=== PATIENT | male | born 1990 | race Caucasian/White ===

== ENCOUNTER 2022-07-04 20:24 | Emergency (ER) | payer MEDICAID, SELFPAY ==
--- NOTE | ~2022-07-04 | XR_ITS ---
EXAMINATION: XR ELBOW, LEFT CLINICAL INFORMATION: Pain. COMPARISON: None available. TECHNIQUE: AP, lateral, and oblique views of the left elbow. FINDINGS: Well-corticated osseous/calcific bodies adjacent to the olecranon process at the insertion site of the triceps. No acute fractures or malalignment. No joint effusion. XR/XR elbow LT 2V IMPRESSION: 1. No acute fractures or malalignment. 2. Well-corticated osseous/calcific bodies adjacent to the olecranon process at the insertion site of the triceps suggesting calcific tendinosis/degenerative changes. Correlate with point tenderness.
[2022-07-04 20:29] VITALS: BP 119/86; PULSE 106; RESP 18; TEMP 36.6; O2SAT 94; BMI 36.5
--- NOTE | 2022-07-04 20:29 | ED_ITS ---
HPI - General Adult General Chief complaint: Extremity Injury, Upper Stated complaint: Elbow pain/ dislocated? Time Seen by Provider: 07/04/22 22:04 Source: patient Mode of arrival: ambulatory Limitations: no limitations History of Present Illness HPI narrative: Patient is a 32 year old assigned male at with no reported medical history presenting to the emergency department today with elbow pain. Patient states that he hit his left elbow a few days ago and again today. Patient denies hitting his head with the incident or any loss of consciousness. Patient denies any dizziness, lightheadedness, abdominal pain, nausea, vomiting, fever, chills, blurry vision, double vision, loss of vision, chest pain, difficulty breathing, shortness of breath, back pain, night sweats, pain with urination, increased urinary frequency, increased urinary urgency, blood in his urine or stool, syncope or a near syncopal episode, bowel incontinence, bladder incontinence, bowel retention, bladder retention, or any other complaints at this time. Onset (ago): day(s) Location: left and upper extremity Radiation: non-radiation Severity: mild Severity scale (1-10): 2 Quality: aching and dull Relieving factors: none Exacerbating factors: none Associated symptoms: denies other symptoms Treatments prior to arrival: none Related Data Allergies Allergy/AdvReac Type Severity Reaction Status Date / Time No Known Allergies Allergy Verified 07/04/22 20:28 Review of Systems Constitutional: Constitutional: Reports no additional constitutional complaints, Denies chills, Denies fever(s) and Denies night sweats Eyes: Eyes: Reports no additional eye complaints, Denies blurry vision, Denies change in vision, Denies diplopia, Denies eye discharge, Denies loss of vision and Denies eye pain ENT: Denies dizziness Cardiovascular: Cardiovascular: Reports no additional cardiovascular complai nts, Denies chest pain, Denies lightheadedness, Denies Loss of Consciousness and Denies dyspnea Respiratory: Respiratory: Reports no additional respiratory complaints and Denies dyspnea Gastrointestinal: Gastrointestinal: Reports no additional gastrointestinal complaints, Denies abdominal pain, Denies melena, Denies hematochezia, Denies change in bowel habits and Denies change in stool character Genitourinary: Genitourinary: Reports no additional male genitourinary complaints, Denies hematuria, Denies oliguria, Denies difficulty urinating, Denies dysuria, Denies urinary frequency, Denies urinary hesitancy, Denies urinary incontinence and Denies urinary urgency Musculoskeletal: Musculoskeletal: Reports no additional musculoskeletal complaints, Denies numbness and Denies tingling Comments: left elbow pain Neurologic: Denies dizziness, Denies loss of vision, Denies numbness and Denies tingling Psychiatric: Psychiatric: Reports no additional psychiatric complaints Endocrine: Endocrine: Reports no additional endocrine complaints Hematologic/Lymphatic: Hematologic/Lymphatic: Reports no additional hematologic/lymphatic complaints Allergic/Immunologic: Allergic/Immunologic: Reports no additional allergic/immunologic complaints PMFSH Past Medical History Attestation statement: The following information was validated with the patient. Source: old records reviewed and nursing notes reviewed Social History Social History Advance Directives: No Advance Directives Information Provided: No Physical Exam ED Vital Signs: BMI result Body Mass Index 36.5 Const General: cooperative, no acute distress, alert and awake Nutritional Appearance: well nourished Orientation/consciousness: patient oriented x3 Limitations: no limitations HENMT Head: Yes normal to inspection and Yes atraumatic Ears: hearing grossly normal bilaterally and external ears normal General nose exam: Normal external nose present, no nasal discharge noted and no epistaxis Face and sinus: Yes normal facial exam, No abrasion and No laceration Mouth: Normal oral and palatal mucosa present, no drooling and no muffled voice Eyes General: appearance normal, both eyes and all related structures Periorbital: periorbital findings normal Eyelids: Yes eyelids normal Conjunctivae: conjunctivae normal Pupils: Equal, round and reactive pupils present EOM: EOMs intact bilaterally Neck Neck: Yes normal visual inspection, Yes full ROM and Yes no lymphadenopathy Chest Chest palpation & inspection: normal inspection of the chest Resp Effort & Inspection: normal respiratory effort and able to speak in complete sen tences Auscultation: clear to auscultation bilaterally Cardio Rate: regular rate Rhythm: regular rhythm GI Inspection: Yes normal to inspection Neuro General: patient oriented x3 and moves all extremities Cranial nerves: Yes Equal, round and reactive pupils present Cognition (Neuro): normal cognition Motor exam (neuro): 5/5 motor strength present throughout Sensory Exam: Normal double simultaneous stimulation for sensation Coordination: [id number] test normal Extrem General: Yes normal to inspection, Yes full ROM and Yes capillary refill normal Psych Appearance: grossly normal Mental Status: mental status grossly normal Affect: normal affect Attitude: cooperative Thought process: Normal thought process present Thought content: Normal thought content present Insight: Good insight present (Psych) Course Course Course Narrative: RME performed by Denisse Landaverde PA-C. Patient is a 32 year old assigned male at presenting to the emergency department with left elbow pain. Imaging ordered. Patient placed back in the waiting room pending room availability and results. Medical Decision Making Medical Decision Making MDM Narrative: Patient is a 32 year old assigned male at with no reported medical history presenting to the emergency department today with left elbow pain. Patient's physical exam was unremarkable. Patient's left elbow x-ray showed no acute process. Patient eloped from the department prior to my explaining of my physical exam findings or his imaging results. Differential Diagnosis Differential Diagnoses: The differential diagnosis associated with the presentation includes left elbow injury Independent Interpretation I performed an independent interpretation of an: Plain X-Ray Interpretation: My interpretation is in agreement with the radiologist's impression of this imaging study. EXAMINATION: XR ELBOW, LEFT CLINICAL INFORMATION: Pain.? COMPARISON: None available.? TECHNIQUE: AP, lateral, and oblique views of the left elbow. FINDINGS: Well-corticated osseous/calcific bodies adjacent to the olecranon process at the insertion site of the triceps. No acute fractures or malalignment. No joint effusion.? XR/XR elbow LT 2V IMPRESSION: 1.? No acute fractures or malalignment. 2.? Well-corticated osseous/calcific bodies adjacent to the olecranon process at the insertion site of the triceps suggesting calcific tendinosis/degenerative changes. Correlate with point tenderness. Dictated By: Jessi Porter Signed By: Electronically signed by Jessi?Charlotte 07/04/22 [id number] Discharge Plan Discharge Clinical Impression: Elbow injury Patient Disposition: Elopement Discharge Date/Time: 07/04/22 22:10
--- NOTE | 2022-07-04 21:34 | PC.NURSE ---
pt loudly exclaiming in room, ice applied to affected extremity, pt sts pain is 10/10, author asked pt what he hit his elbow on, pt could not recall. pt groaning, yelling profanties, XR taken, water pitcher and call [place] at bedside. awaiting provider WCTM.
--- NOTE | 2022-07-04 22:09 | PC.NURSE ---
returned to pt room- pt eloped, provider aware
== END 2022-07-04 22:10 | disposition left against medical advice (07) ==
PROVIDERS: Emergency Provider Emergency Medicine
DX: S59.902A Unspecified injury of left elbow, initial encounter (principal); W22.8XXA Striking against or struck by other objects, initial encounter; Y93.9 Activity, unspecified; Y92.9 Unspecified place or not applicable; Y99.9 Unspecified external cause status
CPT/HCPCS: 73070; 99281; 99283

== ENCOUNTER 2022-10-12 13:17 | Emergency (ER) | payer MEDICAID, SELFPAY ==
--- NOTE | 2022-10-12 13:20 | ECG_ITS ---
Test Reason : chest pain Blood Pressure : / mmHG Vent. Rate : 089 BPM Atrial Rate : 089 BPM P-R Int : 178 ms QRS Dur : 116 ms QT Int : 384 ms P-R-T Axes : 035 039 023 degrees QTc Int : 467 ms Normal sinus rhythm Incomplete right bundle branch block Nonspecific T wave abnormality Prolonged QT Abnormal ECG When compared with ECG of 14-FEB-2008 15:41, Significant changes have occurred Referred By: Generic ED Physician Electronically Signed By:Karl Singh
--- NOTE | 2022-10-12 14:31 | ED.GENADULT ---
HPI - General Adult General Stated complaint: chest pain Related Data Allergies Allergy/AdvReac Type Severity Reaction Status Date / Time No Known Allergies Allergy Verified 07/04/22 20:28 [facility] [place] Social History Social History Advance Directives: No Advance Directives Information Provided: No Course Course Course Narrative: [id number] presenting to the ER with complaints of chest pain x 2 days. Pt had EKG performed and left prior to being fully triage. Discharge Plan Discharge Clinical Impression: Chest pain Patient Disposition: Elopement Interventions: LWBS Worksheet Last Done: 10/12/22 15:03 Discharge Date/Time: 10/12/22 15:03
== END 2022-10-12 15:03 | disposition left against medical advice (07) ==
PROVIDERS: Emergency Provider Emergency Medicine; PCP Internal Medicine
DX: R07.9 Chest pain, unspecified (principal)
CPT/HCPCS: 93005; 99282; 99283

== ENCOUNTER → 2022-10-12 13:20 | Outpatient (BNV) | payer MEDICAID, SELFPAY | PROVIDERS: Emergency Provider Emergency Medicine; PCP Internal Medicine; Visit Provider Internal Medicine Cardiovascular Disease | DX: R94.31 Abnormal electrocardiogram [ECG] [EKG] (principal) | CPT/HCPCS: 93010 ==

== ENCOUNTER 2024-04-19 13:06 | Outpatient (REF) | payer OTHER, MEDICAID, SELFPAY ==
--- NOTE | ~2024-04-19 | XR_ITS ---
EXAMINATION: XR CHEST CLINICAL INFORMATION: COUGH. R/O PNEUMONIA COMPARISON: Cough TECHNIQUE: 2 views of the chest were obtained. FINDINGS: No significant abnormality is noted involving the heart, lungs, mediastinum, bony thorax or soft tissues. XR/XR chest 2V IMPRESSION: Unremarkable chest examination. Electronically signed by: Curtis Cruz MD 04/19/2024 03:[address] [facility] [place]
== END 2024-04-19 13:07 | disposition home or self-care (01) ==
LOC: HO.HMGCX 13:06
PROVIDERS: PCP Internal Medicine; Visit Provider Internal Medicine
DX: R05.9 Cough, unspecified (principal)
CPT/HCPCS: 71046

== ENCOUNTER → 2024-04-19 13:13 | Outpatient (BNV) | payer OTHER, MEDICAID, SELFPAY | PROVIDERS: PCP Internal Medicine; Visit Provider Radiology Diagnostic Radiology | DX: R05.9 Cough, unspecified (principal) | CPT/HCPCS: 71046 ==

== ENCOUNTER 2024-09-13 13:45 | Emergency (ER) | payer OTHER, SELFPAY ==
--- NOTE | ~2024-09-13 | CT_ITS ---
CLINICAL HISTORY: fall off hui in [place] [address] cervical spine without contrast Comparison: None Findings: Normal limited view of the intracranial contents. Soft tissues of the neck are normal. Lung apices are clear. Normal vertebral body alignment. No fractures or dislocations. No significant degenerative change. No epidural hematoma. Impression: Unremarkable CT of the cervical spine, no signs of acute trauma. This document has been electronically signed by: Juan Jose Quiroz MD on 09/13/2024 17:20:41
--- NOTE | ~2024-09-13 | CT_ITS ---
EXAMINATION: CT HEAD WITHOUT CONTRAST CLINICAL INFORMATION: Bilateral mixed, fell from a hui 4 days ago COMPARISON: December 02, 2019 TECHNIQUE: Contiguous axial imaging was performed from the skull base to vertex without intravenous administration of contrast. This CT examination was performed using dose optimization techniques as appropriate, variously including the following: *Automated exposure control *Adjustment of mA and/or kV according to patient size (this includes techniques or standardized protocols for targeted exams where dose is matched to indication/reason for exam; i.e. extremities or head) *Use of iterative reconstruction technique DLP: 840 mGY*cm FINDINGS: There is no acute ischemic change. There is no intracranial hemorrhage. There is no mass-effect or midline shift. Basal cisterns and ventricles are within normal limits for age/cerebral volume. Orbits are symmetrical and unremarkable. Paranasal sinuses and mastoid air cells are pneumatized. There are no bony abnormalities. CT/CT head/brain wo IV con IMPRESSION: No acute intracranial abnormality. Electronically signed by: Abdifatah Kapadia MD 09/13/2024 04:41 PM EDT
--- NOTE | ~2024-09-13 | XR_ITS ---
EXAMINATION: XR ANKLE, RIGHT CLINICAL INFORMATION: swelling and pain s/p fall COMPARISON: None available. TECHNIQUE: AP, lateral, and mortise views of the right ankle. FINDINGS: Talar dome is intact. Ankle mortise is congruent. There is no widening of the syndesmosis. Soft tissue swelling is more pronounced laterally. XR/XR ankle RT min 3V IMPRESSION: Soft tissue swelling, otherwise unremarkable ankle. Electronically signed by: Abdifatah Kapadia MD 09/13/2024 02:39 PM EDT
--- NOTE | ~2024-09-13 | CT_ITS ---
EXAMINATION: CT CHEST WITH CONTRAST CLINICAL INFORMATION: Fall from] [place] 4 days ago. DLP: 475 mGY*cm COMPARISON: December 02, 2019 TECHNIQUE: Multidetector volumetric CT imaging of the chest was obtained after the administration of 85 mL of Omnipaque 350 intravenous contrast without immediate adverse reactions. Axial MIP volume rendering provided. Sagittal and coronal reformatted images were obtained. This CT examination was performed using dose optimization techniques as appropriate, variously including the following: *Automated exposure control *Adjustment of mA and/or kV according to patient size (this includes techniques or standardized protocols for targeted exams where dose is matched to indication/reason for exam; i.e. extremities or head) *Use of iterative reconstruction technique FINDINGS: LUNGS: Atelectasis and airspace opacity is present in the left lower lobe. MEDIASTINUM: Trace pericardial fluid is present. Otherwise unremarkable. PLEURA: Small to medium layering pleural effusion is present on the left AXILLA/chest wall: No lymphadenopathy. Prominent soft tissue is present in the subareolar region. UPPER ABDOMEN: There is fat stranding and free fluid. OSSEOUS STRUCTURES: No fractures are identified. CT/CT chest w IV con IMPRESSION: Small to medium size layering pleural effusions present on the left. There is left lower lobe atelectasis and possible pneumonia. Gynecomastia, unchanged. There is fat stranding in free fluid in the upper abdomen. Fleischner guidelines were followed. Electronically signed by: Abdifatah Kapadia MD 09/13/2024 04:52 PM EDT
--- NOTE | ~2024-09-13 | CT_ITS ---
EXAMINATION: CT ABDOMEN AND PELVIS WITH CONTRAST CLINICAL INFORMATION: Fell from a hui in [place] 4 days ago COMPARISON: December 02, 2019 DLP: 1190 mGY*cm TECHNIQUE: Multidetector volumetric images were obtained from the superior aspect of the liver through the pubic symphysis following administration 85 mL of Omnipaque 350 intravenous contrast. Sagittal and coronal reformatted images were obtained on the technologist's workstation. Oral contrast: No This CT examination was performed using dose optimization techniques as appropriate, variously including the following: *Automated exposure control *Adjustment of mA and/or kV according to patient size (this includes techniques or standardized protocols for targeted exams where dose is matched to indication/reason for exam; i.e. extremities or head) *Use of iterative reconstruction technique FINDINGS: LUNG BASES: There is a layering pleural effusion and compressive atelectasis. LIVER, GALLBLADDER, AND BILIARY TREE: Geographic fatty changes are present in the liver sparing the caudate lobe and portions of the left hepatic lobe Gall bladder and bile duct are unremarkable. PANCREAS: There is fat stranding and fluid around the tail the pancreas which appears slightly heterogeneous SPLEEN: 15 cm long axis, splenomegaly. ADRENAL GLANDS: Unremarkable. KIDNEYS AND URETERS: The kidneys are normal in size, shape, and attenuation. No hydronephrosis, hydroureter, or calculi seen. No perinephric stranding. BLADDER: Unremarkable. GASTROINTESTINAL TRACT: A few pseudodiverticula are present in the distal descending and proximal sigmoid colon. The appendix is within normal limits. The colon is mostly decompressed. ABDOMINAL WALL: There is mild fat stranding bilaterally along the flanks and periumbilical region. LYMPH NODES: Normal. VASCULAR: Unremarkable. PELVIC VISCERA: Unremarkable. OSSEOUS STRUCTURES: Vertebral hemangioma is present in the central and left L2 vertebral body . Chronic accessory ossification lateral to the acetabular roof is again noted. No fractures are identified. CT/CT abdomen pelvis w IV con IMPRESSION: Grade 1, possible grade 2 contusion of the pancreas. Small to medium left pleural effusion with compressive atelectasis in the left lower lobe. Geographic fatty changes are evident in the liver. Splenomegaly Fleischner guidelines were followed. Electronically signed by: Abdifatah Kapadia MD 09/13/2024 05:15 PM EDT
--- NOTE | ~2024-09-13 | XR_ITS ---
EXAMINATION: XR FOOT, RIGHT CLINICAL INFORMATION: pain and swelling s/p fall COMPARISON: None available. TECHNIQUE: AP, lateral, and oblique views of the right foot. FINDINGS: The bones and soft tissues are normal. No fracture. Alignment is anatomic. Joint spaces are maintained. XR/XR foot RT min 3V IMPRESSION: Normal right foot. Electronically signed by: Abdifatah Kapadia MD 09/13/2024 02:41 PM EDT
[2024-09-13 13:56] VITALS: BP 169/97; PULSE 98; O2SAT 98
--- NOTE | 2024-09-13 13:57 | ED_ITS ---
HPI - General Adult General Chief complaint: General Medical Stated complaint: L rib, abd, back, foot pain, post fall 4 days ago Time Seen by Provider: 09/13/24 13:57 Source: patient, EMS, RN notes reviewed and old records reviewed Mode of arrival: EMS Limitations: altered mental status History of Present Illness ED Provider: Yuliya [facility] narrative: Patient is a 34-year-old male with no past medical history presenting to the emergency department via EMS complaining of rib pain, right ankle pain, generalized body pain. States that he was in [place], [place] 4 days ago and jumped off of a 4 ft ledge, landing on his side on [address]. States that he was seen at a hospital in [place] twice after this fall but that he left prior to completing treatment. Unable to state what diagnostic testing was performed at that hospital. Patient providing limited history, difficulty maintaining alert and awake state. Reports that he was told his ankle was fractured, however, does not have a splint or cast to right ankle. Denies headache, vision changes, neck or back pain, chest pain. Denies abdominal pain, flank pain, hematuria. Complains of right sided rib and right ankle pain, feels sore all over. Admits to drinking ?2 shots? of alcohol prior to arrival today. Denies any drug use. States he was prescribed percocet in [place] but ran out. complaint: rib and ankle pain Onset (ago): day(s) Related Data Allergies Allergy/AdvReac Type Severity Reaction Status Date / Time No Known Allergies Allergy Verified 09/13/24 14:11 Review of Systems 2 Review of Systems: As per HPI Yes all other systems are reviewed and are negative Constitutional: Constitutional: Reports as per HPI [facility] Social History Social History Alcohol intake: current Alcohol type: hard liquor Smoked in Last 30 Days: Yes Use of substances other than those prescribed or required for medical reasons: No Advance Directives: No Advance Directives Information Provided: Yes Do you have a plan to hurt others: No Plan Physical Exam ED Vital Signs: Vital Signs - 24 hr 09/13/24 14:01 09/13/24 16:48 Temperature 98.7 F 98.7 F Pulse Rate 98 98 Respiratory Rate 18 18 Blood Pressure 136/75 136/75 Pulse Oximetry 94 94 Oxygen Delivery Method Room Air Room Air BMI result Body Mass Index 40.5 Vital signs have been reviewed and appear to be correct. Blood pressure normal. Heart rate normal. Respiratory rate normal. Temperature normal. Oxygen saturation normal. Const General: healthy appearing, no acute distress and intoxicated appearing (wakes to voice) Orientation/consciousness: oriented to person, oriented to place, oriented to time and patient oriented x3 HENMT Head: Yes normal to inspection, Yes normocephalic, Yes atraumatic, No Pereyra's sign and No periorbital ecchymosis Ears: hearing grossly normal bilaterally, external ears normal, TM's normal bilaterally and EAC's normal General nose exam: Normal external nose present, Normal nasal mucous membranes and turbinates present and Normal septum present Face and sinus: Yes sinuses nontender and Yes face symmetric Mouth: Normal oral and palatal mucosa present, oropharynx normal and moist mucous membranes Throat: Yes uvula midline Eyes General: appearance normal, both eyes and all related structures Pupils: Equal, round and reactive pupils present (3mm bilat) EOM: EOMs intact bilaterally Neck Neck: Yes normal visual inspection, Yes full ROM, Yes trachea midline, Yes supple and No anterior neck swelling Chest Chest palpation & inspection: normal inspection of the chest, no crepitus and tenderness rib right mid-axillary line Resp Effort & Inspection: normal respiratory effort and able to speak in complete sentences Auscultation: clear to auscultation bilaterally Cardio Rate: regular rate Rhythm: regular rhythm Heart sounds: S1 normal heart sound present and S2 normal heart sound present GI Inspection: Yes normal to inspection and No abdominal wall ecchymosis Palpation (GI): Soft to palpation and nontender Auscultation: normoactive bowel sounds General: Yes no CVA tenderness Back/Spine/Pelvis Back: no CVA tenderness Cervical Spine: normal cervical lordosis, cervical ROM normal, No cervical muscular tenderness, No pain with cervical ROM, No Cervical spine tenderness and No step off deformity Thoracic/Lumbar Spine: thoracic and lumbar spine normal to inspection, thoraco- lumbar ROM normal, No pain with thoraco-lumbar ROM, No paraspinal muscle tenderness, No thoracic spinal tenderness and No lumbar spinal tenderness Pelvis: no pain with anterior-posterior compression and no pain with lateral compression Skin General skin exam: elasticity normal and turgor normal Neuro General: oriented to person, oriented to place, oriented to time, patient oriented x3, gait normal, tone normal, moves all extremities, Normal light touch and pain sensation, no focal motor deficits, CN's II-XI intact bilaterally and deep tendon reflexes 2+ bilaterally Cranial nerves: Yes Equal, round and reactive pupils present (3mm bilat) Cognition (Neuro): normal cognition Motor exam (neuro): 5/5 motor strength present throughout, Normal motor muscle tone present throughout and Motor abnormalities not present Extrem General: Yes full ROM, Yes no pedal edema and Yes no calf tenderness Right lower extremity: ankle Details: tenderness (diffuse), swelling Details: diffusely and normal ROM and foot Details: abrasion dorsal Details: multiple and vascular exam Details: dorsalis pedis pulse present, posterior tibial pulse present and normal capillary refill Left lower extremity: ankle Details: tenderness (diffuse), swelling Details: diffusely and normal ROM and foot Details: vascular exam Details: dorsalis pedis pulse present, posterior tibial pulse present and normal capillary refill Psych Mental Status: mental status grossly normal Affect: normal affect Thought process: Normal thought process present Course Reevaluation(s) Reevaluation #1: Patient now awake and alert, abruptly stating that he wishes to leave the department prior to results of imaging. Discussed with patient the risks of leaving against medical advice up to and including . Patient is alert, oriented x3 and has capacity to make his own medical decisions. Advised patient that he can return to the ED or another ED at any time if he should change his mind. At time of leaving, no evidence of fracture to right foot or ankle, no evidence of ICH or skull fracture on CT head. * The patient has decided to leave against medical advice because he does not want to wait in the ED any longer. * They have normal mental status and adequate capacity to make medical decisions. * The patient refuses full ED evaluation and wants to be discharged. * The risks have been explained to the patient, including fracture, internal bleeding, intracranial hemorrhage,, worsening illness, chronic pain, permanent disability and . * The benefits of ED evaluation have also been explained, including the availability and proximity of nurses, physicians, monitoring, diagnostic testing, treatment and pain control. * The patient was able to understand and state the risks and benefits of ED evaluation. This was witnessed by nurse Hurtado and me. * They had the opportunity to ask questions about their medical condition. * The patient was treated to the extent that they would allow and knows that they may return for care at any time. Time: 16:57 Reevaluation #2: Results of CT chest, abdomen/pelvis, and cervical spine now back. No evidence of acute fracture or listhesis of c-spine. CT chest notable for small to medium size layering pleural effusions on the left as well as left lower lobe atelectasis and possible pneumonia. CT abdomen pelvis notable for grade 1, possible grade 2 contusion of the pancreas, splenomegaly. Was able to contact patient via telephone to discuss the results and instructed patient to present to the emergency department at [facility] as if he return to this ED would likely be a trauma transfer. Expect called to mateusz Lockhart RN at [facility] ED. Patient verbalized understanding of results and states he will present to [facility] ED. Images uploaded to [facility] ED. CT cervical spine without contrast Comparison: None Findings: Normal limited view of the intracranial contents. Soft tissues of the neck are normal. Lung apices are clear. Normal vertebral body alignment. No fractures or dislocations. No significant degenerative change. No epidural hematoma. Impression: Unremarkable CT of the cervical spine, no signs of acute trauma. CT/CT chest w IV con IMPRESSION: Small to medium size layering pleural effusions present on the left. There is left lower lobe atelectasis and possible pneumonia. Gynecomastia, unchanged. There is fat stranding in free fluid in the upper abdomen. Fleischner guidelines were followed. CT/CT abdomen pelvis w IV con IMPRESSION: Grade 1, possible grade 2 contusion of the pancreas. Small to medium left pleural effusion with compressive atelectasis in the left lower lobe. Geographic fatty changes are evident in the liver. Splenomegaly Time: 17:26 Medications Administered Discontinued Medications Generic Name Dose Route Start Last Admin Trade Name Freq PRN Reason Stop Dose Admin Iohexol 100 ml 09/13/24 16:06 09/13/24 16:06 Iohexol 350 Mg/Ml 100 Ml Infus..Btl IV 09/13/24 16:07 85 ml ONCE ONE Administration Medical Decision Making Medical Decision Making MDM Narrative: Patient is a 34-year-old male with no past medical history presenting to the emergency department via EMS complaining of rib pain, right ankle pain, generalized body pain. On exam patient is awake, A+Ox3, VS WNL, afebrile, normal neurological exam without focal deficits, physical exam findings as above. Given reported symptoms and physical exam findings, initial differential includes but is not limited to ICH, skull or cervical vertebral fracture subluxation, pneumothorax, intra-abdominal hemorrhage or other traumatic injury, right ankle or foot fracture versus sprain, drug or alcohol intoxication. Labs notable for mild anemia, no leukocytosis, slight hypokalemia and mildly elevated transaminases. Urinalysis is without evidence of infection and no blood. X-ray right foot and ankle without evidence of acute fracture. CT head notable for notable for no evidence of ICH, skull fracture. My interpretation is in agreement with the radiologist's interpretation. See course for remainder of clinical decision making. Differential Diagnosis Differential Diagnoses: The differential diagnosis associated with the presentation includes As per [facility] Admission/Observation Consideration of admission/observation: Escalation of care including admission/observation considered Patient would have been admitted to the hospital had their work up had any findings where hospital admission was appropriate and their clinical presentation warranted hospital admission. Lab Data [facility] Lab Attestation statement: I reviewed the patient's lab results. As per [facility] 09/13/24 14:58 09/13/24 14:58 Labs: Lab Results 09/13/24 09/13/24 Range/Units 14:58 15:05 WBC 6.4 (4.8-10.8) X10*3/uL RBC 3.62 L (4.60-5.80) X10*6/uL Hgb 11.8 L (14.0-18.0) g/dl Hct 33.6 L (42.0-52.0) % MCV 92.8 (80.0-98.0) fL MCH 32.6 (27.0-33.0) pg MCHC 35.1 (31.0-36.0) g/dl RDW 14.1 (11.0-16.0) % Plt Count 169 (160-400) X10*3/uL MPV 8.6 L (9.4-12.4) fL Immature Gran % (Auto) 1.4 H (0.0-0.4) % Neut % (Auto) 67.1 (45-73) % Lymph % (Auto) 16.8 L (20-40) % [place] % (Auto) 11.1 H (2-11) % Eos % (Auto) 3.0 (0-4) % Baso % (Auto) 0.6 (0-2) % Lymph # (Auto) 1.1 L (1.2-4.9) X10*3/uL [place] # (Auto) 0.7 (0.1-1.2) X10*3/uL Eos # (Auto) 0.2 (0.0-0.4) X10*3/uL Baso # (Auto) 0.0 (0.0-0.2) X10*3/uL Abs Immat Gran (auto) 0.09 H (0.00-0.03) X10*3/uL Absolute Neuts (auto) 4.3 (2.0-8.3) x10*3/uL Absolute Nucleated RBC 0.000 (0.0-0.012) X10*3/uL Nucleated RBC % (auto) 0.0 (0.0-0.2) /100WBC Sodium 142 (135-145) mmol/L Potassium 3.2 L (3.3-5.1) mmol/L Chloride 105 (96-108) mmol/L Carbon Dioxide 28 (22-29) mmol/L Anion Gap 12 (12-20) BUN 8 L (9-16) mg/dL Creatinine 0.67 (0.5-1.4) mg/dL Estim Creat Clear Calc 200.7 Estimated GFR > 60 Random Glucose 81 (60-115) mg/dL Calcium 9.0 (8.4-10.2) mg/dL Total Bilirubin 0.4 (0.0-1.0) mg/dL AST 43 H (5-37) U/L ALT 47 H (0-40) U/L Alkaline Phosphatase 81 (39-117) U/L Total Protein 6.6 (6.5-8.0) g/dL Albumin 3.5 (3.5-5.0) g/dL Urine Color Yellow Urine Appearance Clear Urine pH 5.5 (5.0-9.0) Ur Specific [place] <= 1.005 (1.005-1.025) Urine Protein Negative (Neg-Trace) mg/dL Urine Glucose (UA) Negative (Negative) mg/dL Urine Ketones Negative (Negative) mg/dL Urine Blood Negative (Negative) Urine Nitrite Negative (Negative) Ur Leukocyte Esterase Negative (Negative) Urine Opiates Screen Not Detected (Not Detect) Ur Buprenorphine Scrn Not Detected (Not Detect) ng/mL Ur Oxycodone Screen Not Detected (Not Detect) ng/mL Urine Methadone Screen Not Detected (Not Detect) ng/mL Urine Fentanyl Screen Not Detected (Not Detect) Ur Barbiturates Screen Not Detected (Not Detect) Ur Phencyclidine Scrn Not Detected (Not Detect) Ur Amphetamines Screen Not Detected (Not Detect) U Benzodiazepines Scrn POSITIVE H (Not Detect) Urine Cocaine Screen Not Detected (Not Detect) U Marijuana (THC) Screen Not Detected (Not Detect) Ethyl Alcohol 63 mg/dL Independent Interpretation I performed an independent interpretation of an: Plain X-Ray Interpretation: No acute fracture of right foot or ankle on x-ray. CT head notable for no evidence of ICH or skull fracture. Radiology Impression Discussion of test interpretation with radiology: I have reviewed the radiologist's reading. Radiologist Impression: XR/XR foot RT min 3V IMPRESSION: Normal right foot. XR/XR ankle RT min 3V IMPRESSION: Soft tissue swelling, otherwise unremarkable ankle. CT/CT head/brain wo IV con IMPRESSION: No acute intracranial abnormality. External Record Review External record reviewed: Inpatient record, Office record and Outpatient record Critical Care Time Critical Care Time Critical Care Time: Yes Total Critical Care Time: 32 Attestation: I have personally provided critical care time exclusive of time spent on separately billable procedures. Time includes review of lab data, radiology results, discussion with consultants, and monitoring for potential decompensation. Intervention performed as documented. Discharge Plan Discharge Clinical Impression: Rib pain Ankle pain, right Qualifiers: Chronicity: acute Qualified Code(s): M25.571 - Pain in right ankle and joints of right foot Patient Disposition: Left Against Medical Advice Instructions: Against Medical Advice (ED) Additional Instructions: You were evaluated in the emergency department today for injuries sustained after a fall. You chose to leave the emergency department against medical advice prior to the results of your imaging. You can return to the emergency department at any time should you change your mind. We recommend that you follow-up with your primary care provider. Return to the emergency department with new or concerning symptoms. Stand Alone Forms: Against Medical Advice Interventions: ED Discharge Assessment Last Done: 09/13/24 16:48 Print Language: Thai
[2024-09-13 14:01] VITALS: BP 136/75; PULSE 98; RESP 18; TEMP 37.1; O2SAT 94; BMI 40.5
[2024-09-13 15:02] LABS: MANUAL DIFF FLAG NO
[2024-09-13 15:05] LABS: Basophils Percent Auto 0.6 % (0-2); Eosinophils Absolute Auto 0.2 X10*3/uL (0.0-0.4); Hematocrit 33.6 % (42.0-52.0); Hemoglobin 11.8 g/dl (14.0-18.0); Imm Gran Abs Auto 0.09 X10*3/uL (0.00-0.03); Imm Gran Pct Auto 1.4 % (0.0-0.4); Lymphocytes Absolute Auto 1.1 X10*3/uL (1.2-4.9); Lymphocytes Percent Auto 16.8 % (20-40); Mean Corpuscular HGB Conc 35.1 g/dl (31.0-36.0); Mean Corpuscular Hemoglobin 32.6 pg (27.0-33.0); Mean Corpuscular Volume 92.8 fL (80.0-98.0); Mean Platelet Volume 8.6 fL (9.4-12.4); Monocytes Absolute Auto 0.7 X10*3/uL (0.1-1.2); Monocytes Percent Auto 11.1 % (2-11); Neutrophils Absolute Auto 4.3 x10*3/uL (2.0-8.3); Neutrophils Percent Auto 67.1 % (45-73); Platelet Count 169 X10*3/uL (160-400); Red Blood Count 3.62 X10*6/uL (4.60-5.80); Red Cell Distribution Width 14.1 % (11.0-16.0); White Blood Count 6.4 X10*3/uL (4.8-10.8)
[2024-09-13 15:13] LABS: Appearance Urine Clear; Color Urine Yellow; Glucose Urine UA Negative (Negative); Leukocyte Esterase Urine Negative (Negative); Nitrite Urine Negative (Negative); PH 5.5 (5.0-9.0); Specific Gravity - Urine <= 1.005 (1.005-1.025); Urine Blood Negative (Negative); Urine Ketones Negative (Negative); Urine Protein Negative (Neg-Trace)
[2024-09-13 15:18] LABS: Alanine Aminotransferase 47 U/L (0-40); Albumin Level 3.5 g/dL (3.5-5.0); Alkaline Phosphatase 81 U/L (39-117); Anion Gap 12 (12-20); Aspartate Amino Transferase 43 U/L (5-37); Bilirubin Total 0.4 mg/dL (0.0-1.0); Blood Urea Nitrogen 8 mg/dL (9-16); Carbon Dioxide 28 mmol/L (22-29); Chloride 105 mmol/L (96-108); Creatinine Clr Calc Pharmacy 200.7; Estimated Glomerular Filt Rate > 60; Ethanol 63 mg/dL; Glucose Random 81 mg/dL (60-115); Potassium 3.2 mmol/L (3.3-5.1); Sodium 142 mmol/L (135-145); Total Protein 6.6 g/dL (6.5-8.0)
[2024-09-13 15:24] LABS: Amphetamine Screen Urine Not Detected (Not Detect); Barbiturates, Urine Not Detected (Not Detect); Benzodiazepines Screen Urine POSITIVE (Not Detect); Buprenorphine Scr Not Detected (Not Detect); Cannabinoid Screen Urine Not Detected (Not Detect); Cocaine Screen Urine Not Detected (Not Detect); Fentanyl, urine Not Detected (Not Detect); Methadone Screen, Urine Not Detected (Not Detect); Opiate Screen Urine Not Detected (Not Detect); Oxycodone Screen Urine Not Detected (Not Detect); Phencyclidine Screen Urine Not Detected (Not Detect)
[2024-09-13] MEDS: iohexoL 350 MG/ML 100 ML INFUS..BTL IV (16:06)
[2024-09-13 16:48] VITALS: BP 136/75; PULSE 98; RESP 18; TEMP 37.1; O2SAT 94
--- OUTSIDE RECORDS SUMMARY | 2024-09-13 17:05 | XMS_ITS | Patient Health Record ---
Author Organization [facility] Charisse bernabe [place] Address [address] [place] [address] Care Team Providers Care Enforcement Safety Officer Name Role Phone Jonh Thakkar MD Primary Care Provider Unavail able [place] Unavailable [phone] Reason For Referral No Information Medications Medication SIG (Take, Route, Frequency, Duration) Notes Start Date End Date Status Clotrimazole-Betamethasone 1-0.05 % 1 application to affected area Externally Twice a day to affected areas on feet for 30 days Active Diflucan 200 MG 1 tablet Orally Once a week for 30 days Active Omeprazole 20 MG Orally Act nel [place] 3 500 500 MG Orally A ctive Social History Tobacco Use: Social History Observation Description Date Details (start date - stop date) Former Smoker NA - NA Tobacco Use/Smoking Question Answer Notes Are you a: former smoker Additional Findings: Tobacco Non-User Current no n-smoker Alcohol Screen Question Answer Notes Did you have a drink containing alcohol in the p ast year? Yes Points 0 Interpretation Negative Tobacco use other than smoking: Question Answer Notes Are you an other tobacco user? No Plan Of Treatment Pending Test Test Name Order Date *Liver Function Test (LFT) 02/09/2018 45084-[id number] Plate 02/09/2018 Insurance Providers Payer Name Payer Address Payer Phone Subscriber Number Group Number Insured Name Patient Relationship to Insured Coverage Start Date Coverage End Date [facility] [address] [facility] [place] [address] [id number] Niko Page Self - patient is the insured Medical (General) History Medical History History ICD Code Anxiety Depression
== END 2024-09-13 19:13 | disposition left against medical advice (07) ==
PROVIDERS: Registered Nurse Emergency; Emergency Provider Emergency Medicine
DX: R07.81 Pleurodynia (principal); M25.571 Pain in right ankle and joints of right foot; Z53.29 Procedure and treatment not carried out because of patient's decision for other reasons
CPT/HCPCS: 36415; 70450; 71260; 72125; 73610; 73630; 74177; 80053; 80307; 81003; 85025; 99284; Q9967

== ENCOUNTER → 2024-09-13 14:05 | Outpatient (BNV) | payer OTHER, SELFPAY | PROVIDERS: Emergency Provider Emergency Medicine; Visit Provider Radiology Diagnostic Radiology | DX: M25.571 Pain in right ankle and joints of right foot (principal); R07.9 Chest pain, unspecified; R07.81 Pleurodynia; Z03.89 Encounter for observation for other suspected diseases and conditions ruled out; W15.XXXA Fall from cliff, initial encounter | CPT/HCPCS: 70450; 71260; 72125; 73610; 73630; 74177 ==